=== PATIENT | female | born 1970 | race Caucasian/White ===

== ENCOUNTER → 2021-01-26 | Day surgery (SDC) | payer BC ==
[~2021-01-26] MED LIST: B&O 60MG R/S 60 MG SUPP PR ONE; CEFTRIAXONE SOD 1 GM VIAL ONE; CLINDAGEL75 ML; CRESTOR10 MG PO; IOPAMIDOL 300MG/ML 50ML INFUS..BTL IV ONE; LOSARTAN POTASS25 MG PO; LYRICA75 MG PO; NEXIUM20 MG PO; PROPRANOLOL HCL40 MG PO; SODIUM CHLORIDE 0.9% 50ML 50 ML ONE; TRAZODONE HCL50 MG PO; TRINTELLIX10 MG PO; VESICARE5 MG PO; Z ARMOUR THYROID PO; Z.0.ADIPEX-P37.5 M1; Z.0.CYMBALTA30 MG PO; Z.0.CYMBALTA60 MG PO; Z.0.LYRICA75 MG PO; Z.0.MELOXICAM7.5 MG PO; Z.0.ORACEA40 MG PO; [UNRECOGNIZED DRUG - OTHER]; [UNRECOGNIZED DRUG - OTHER]; [UNRECOGNIZED DRUG - OTHER] PO
[2021-01-26 11:10] VITALS: BP 115/63
== END | disposition home or self-care (01) ==
LOC: OR 08:13
PROVIDERS: ATTEND Urology
DX: N30.10 Interstitial cystitis (chronic) without hematuria (principal); N32.81 Overactive bladder; R31.0 Gross hematuria; N39.46 Mixed incontinence; N36.41 Hypermobility of urethra; N81.10 Cystocele, unspecified; N81.6 Rectocele; N32.89 Other specified disorders of bladder; R35.1 Nocturia; N13.30 Unspecified hydronephrosis; G47.33 Obstructive sleep apnea (adult) (pediatric); E66.9 Obesity, unspecified; I10 Essential (primary) hypertension; F41.9 Anxiety disorder, unspecified; Z88.1 Allergy status to other antibiotic agents; Z88.3 Allergy status to other anti-infective agents; Z88.8 Allergy status to other drugs, medicaments and biological substances; Z91.048 Other nonmedicinal substance allergy status; Z91.09 Other allergy status, other than to drugs and biological substances; Z01.810 Encounter for preprocedural cardiovascular examination; Z01.812 Encounter for preprocedural laboratory examination; Z20.822 Contact with and (suspected) exposure to COVID-19; Z68.30 Body mass index [BMI] 30.0-30.9, adult; Z80.52 Family history of malignant neoplasm of bladder; Z84.1 Family history of disorders of kidney and ureter
CPT/HCPCS: 52260; 74420; 93005; C1758; J0696; Q9967; U0002

== ENCOUNTER 2022-05-28 05:15 | Emergency (ER) | payer BC ==
[~2022-05-28] VITALS: Ht 160 cm; Wt 61.2 kg
[~2022-05-28 05:15] MED LIST changes: -B&O 60MG R/S 60 MG SUPP PR ONE; -CEFTRIAXONE SOD 1 GM VIAL ONE; -IOPAMIDOL 300MG/ML 50ML INFUS..BTL IV ONE; -SODIUM CHLORIDE 0.9% 50ML 50 ML ONE
[2022-05-28] MEDS ORDERED: ONDANSETRON HCL INJ 2MG/ML 2ML 2 MG/ML VIAL IV STA (06:20)
[2022-05-28] MEDS ORDERED: KETOROLAC TROMETHAMINE 30 MG/ML VIAL IV ONE (06:30)
[2022-05-28] MEDS ORDERED: SODIUM CHLORIDE 0.9% 1000ML 1,000 ML IV SCH (06:30)
[2022-05-28] MEDS ORDERED: KETOROLAC TROMETHAMINE 30 MG/ML VIAL ONE (07:01)
[2022-05-28] MEDS ORDERED: ONDANSETRON HCL INJ 2MG/ML 2ML 2 MG/ML VIAL ONE (07:01)
[2022-05-28] MEDS ORDERED: SODIUM CHLORIDE 0.9% 1000ML 1,000 ML ONE (07:01)
[2022-05-28] MEDS ORDERED: IOPAMIDOL 370 MG/ML 100 ML INFUS..BTL INJ ONE (07:04)
== END 2022-05-28 08:29 | disposition home or self-care (01) ==
LOC: FSED 05:33
DX: R10.814 Left lower quadrant abdominal tenderness (principal); K57.90 Diverticulosis of intestine, part unspecified, without perforation or abscess without bleeding; R11.0 Nausea
CPT/HCPCS: 74176; 80048; 80076; 81003; 85025; 99283; J1885; J2405; J7030; Q9967

== ENCOUNTER 2023-01-09 09:27 | Emergency (ER) | payer BC ==
[~2023-01-09] VITALS: Ht 160 cm; Wt 64.0 kg
[2023-01-09] MEDS ORDERED: ABILIFY20 MG PO (09:54)
[2023-01-09] MEDS ORDERED: VERAPAMIL ER120 MG PO (09:54)
[2023-01-09] MEDS ORDERED: MINIPRESS2 MG PO (09:54)
[2023-01-09] MEDS ORDERED: BUPROPION HCL150 M2 PO (09:54)
== END 2023-01-09 10:18 | disposition home or self-care (01) ==
LOC: FSED 09:44
DX: T50.991A Poisoning by other drugs, medicaments and biological substances, accidental (unintentional), initial encounter (principal); Y92.098 Other place in other non-institutional residence as the place of occurrence of the external cause; I10 Essential (primary) hypertension; E78.5 Hyperlipidemia, unspecified; M79.7 Fibromyalgia; F32.A Depression, unspecified; F41.9 Anxiety disorder, unspecified; Z87.19 Personal history of other diseases of the digestive system
CPT/HCPCS: 99282

== ENCOUNTER 2023-03-27 05:14 | Emergency (ER) | payer BC ==
[~2023-03-27] VITALS: Ht 160 cm; Wt 64.0 kg
[~2023-03-27 05:14] MED LIST changes: +ABILIFY20 MG PO; +BUPROPION HCL150 M2 PO; +MINIPRESS2 MG PO; +VERAPAMIL ER120 MG PO
[2023-03-27] MEDS ORDERED: IOPAMIDOL 370 MG/ML 100 ML INFUS..BTL INJ ONE (06:35)
[2023-03-27] MEDS ORDERED: SODIUM CHLORIDE 0.9% 1000ML 1,000 ML ONE (06:39)
[2023-03-27 07:42] VITALS: O2SAT 100
[2023-03-27] MEDS ORDERED: CIPRO500 MG PO (07:45)
[2023-03-27] MEDS ORDERED: METRONIDAZOLE500 MG PO (07:45)
== END 2023-03-27 07:59 | disposition home or self-care (01) ==
LOC: FSED 05:24
DX: R10.30 Lower abdominal pain, unspecified (principal); K52.9 Noninfective gastroenteritis and colitis, unspecified; R11.0 Nausea; I10 Essential (primary) hypertension; E78.5 Hyperlipidemia, unspecified; M79.7 Fibromyalgia; F41.9 Anxiety disorder, unspecified; Z87.19 Personal history of other diseases of the digestive system
CPT/HCPCS: 74177; 80053; 85025; 99284; J7030; Q9967

== ENCOUNTER 2023-09-24 09:12 | Emergency (ER) | payer BC ==
[~2023-09-24] VITALS: Ht 160 cm; Wt 64.0 kg
[~2023-09-24 09:12] MED LIST changes: +CIPRO500 MG PO; +METRONIDAZOLE500 MG PO
[2023-09-24] MEDS ORDERED: IOPAMIDOL 370 MG/ML 100 ML INFUS..BTL INJ ONE (10:09)
[2023-09-24] MEDS ORDERED: ONDANSETRON HCL INJ 2MG/ML 2ML 2 MG/ML VIAL IV STA (10:12)
[2023-09-24] MEDS ORDERED: SODIUM CHLORIDE 0.9% 1000ML 1,000 ML IV SCH (10:15)
[2023-09-24] MEDS ORDERED: ONDANSETRON HCL INJ 2MG/ML 2ML 2 MG/ML VIAL ONE (10:24)
[2023-09-24] MEDS ORDERED: SODIUM CHLORIDE 0.9% 1000ML 1,000 ML ONE (10:24)
[2023-09-24] MEDS ORDERED: ONDANSETRON ODT4 MG PO (11:55)
[2023-09-24] MEDS ORDERED: PANTOPRAZOLE SO40 MG PO (11:55)
[2023-09-24 12:14] VITALS: BP 135/75; PULSE 80; RESP 20; TEMP 98.1; O2SAT 100
== END 2023-09-24 12:10 | disposition home or self-care (01) ==
LOC: FSED 09:15
DX: K62.5 Hemorrhage of anus and rectum (principal); R10.30 Lower abdominal pain, unspecified; I10 Essential (primary) hypertension; E78.5 Hyperlipidemia, unspecified; F32.A Depression, unspecified; F41.9 Anxiety disorder, unspecified; M79.7 Fibromyalgia; Z87.19 Personal history of other diseases of the digestive system
CPT/HCPCS: 74177; 99284; C9113; J2405; J7030; Q9967

== ENCOUNTER 2024-11-12 06:26 | Emergency (ER) | payer BC ==
[~2024-11-12] VITALS: Ht 160 cm; Wt 61.2 kg
[~2024-11-12 06:26] MED LIST changes: +ONDANSETRON ODT4 MG PO; +PANTOPRAZOLE SO40 MG PO
[2024-11-12] MEDS: SODIUM CHLORIDE 0.9% 1000ML 1,000 ML IV ONE (07:22)
[2024-11-12] MEDS ORDERED: POTASSIUM CHLORIDE 20 MEQ TAB CR PO ONE (08:21)
[2024-11-12] MEDS ORDERED: ONDANSETRON ODT4 MG PO (08:22)
[2024-11-12] MEDS ORDERED: METRONIDAZOLE500 MG PO (08:22)
[2024-11-12] MEDS ORDERED: CIPRO500 MG PO (08:22)
[2024-11-12] MEDS: POTASSIUM CHLORIDE 20 MEQ TAB CR PO STA (08:26)
[2024-11-12 08:39] VITALS: PULSE 81; RESP 16; TEMP 97.9; O2SAT 100
== END 2024-11-12 08:39 | disposition home or self-care (01) ==
LOC: FSED 06:30
DX: R10.32 Left lower quadrant pain (principal); I10 Essential (primary) hypertension; E78.5 Hyperlipidemia, unspecified; M79.7 Fibromyalgia; F41.9 Anxiety disorder, unspecified; F32.A Depression, unspecified; Z11.52 Encounter for screening for COVID-19; Z87.19 Personal history of other diseases of the digestive system
CPT/HCPCS: 0223U; 74176; 80053; 81003; 81025; 85025; 87400; 99284; J7030

== ENCOUNTER 2025-04-21 14:00 | Outpatient (RCR) | payer BC | END 2025-04-25 | LOC: PT 14:00 | PROVIDERS: ATTEND Physician Assistant | DX: M75.41 Impingement syndrome of right shoulder (principal) ==

== ENCOUNTER 2025-05-11 16:00 | Outpatient (RCR) | payer BC | END 2025-05-26 | LOC: PT 16:00 | PROVIDERS: ATTEND Physician Assistant | DX: M75.41 Impingement syndrome of right shoulder (principal) ==